=== PATIENT | female | born 1960 | race Caucasian/White ===

== ENCOUNTER → 2016-05-25 | Outpatient (CLI) | payer BC ==
--- NOTE | 2016-05-25 09:09 | MR ---
EXAMINATION TYPE: MR knee RT wo con DATE OF EXAM: 05/25/2016 8:24 AM COMPARISON: NONE HISTORY: Rt Knee internal derangement per order. Pain, swelling, and locking sensation for x 6-7 kait hs per patient. History of prior surgery. TECHNIQUE: Multiplanar, multisequence images of the knee is performed without IV contrast. FINDINGS: MEDIAL MENISCUS: Anterior horn is intact without tear. Oblique increased signal posterior horn of med ial meniscus is present on sagittal image 8, does not extend to articular surface at this level. Some additional vague linear signal is seen abutting articular surface on sagittal image 10. LATERAL MENISCUS: Anterior and posterior horns are intact without tear. CRUCIATE LIGAMENTS: The anterior and posterior cruciate ligaments are intact. Focal increased signal is seen in posterior cruciate ligament on sagittal image 16 consistent with partial tear/tendinosis. COLLATERAL LIGAMENTS: The medial collateral ligament and lateral collateral ligament complex are inta ct and unremarkable. EXTENSOR MECHANISM: Visualized quadriceps and patellar tendons are intact. EFFUSION: There is small suprapatellar joint effusion. POPLITEAL CYST: No popliteal/llanos cyst. TRICOMPARTMENT SPACES: There is moderate to severe joint space loss patellofemoral compartment with m ild to moderate spurring. Mild joint space loss medial tibiofemoral compartment is present. Mild spur ring lateral and medial tibiofemoral compartments is seen. CARTILAGE: There is prominent chondromalacia patella with full-thickness cartilaginous loss for poste rior patellar pole identified seen best along the medial inferior aspect on axial image 12. BONE MARROW SIGNAL: There is artifact from metallic hardware at level of the tibial metadiaphysis at level of tibial tuberosity. There is some T2 hyperintense change involving the superior medial patell ar pole level of chondromalacia patella. OTHER: No additional significant abnormality is appreciated. IMPRESSION: 1. Degenerative changes right knee most pronounced patellofemoral compartment where moderate to advan gill findings and full-thickness chondromalacia patella is present. 2. Full-thickness tear posterior horn of medial meniscus felt present. 3. Evidence of prior surgery proximal tibia.
== END | disposition home or self-care (01) ==
LOC: RADMRIMAIN 07:37
PROVIDERS: ATTEND Family Medicine
DX: M23.221 Derangement of posterior horn of medial meniscus due to old tear or injury, right knee (principal); M17.11 Unilateral primary osteoarthritis, right knee; Z98.890 Other specified postprocedural states

== ENCOUNTER → 2017-10-23 | Outpatient (CLI) | payer BC ==
--- NOTE | 2017-10-23 15:16 | CT ---
EXAMINATION TYPE: CT brain wo con DATE OF EXAM: 10/23/2017 HISTORY: Short term memory loss x1 year CT DLP: 1055 mGycm. Automated Exposure Control for Dose Reduction was Utilized. TECHNIQUE: CT scan of the head is performed without contrast. COMPARISON: None. FINDINGS: There is no acute intracranial hemorrhage or midline shift identified. Ventricles and sul ci are felt within normal limits in size. Velasco-white matter differentiation is maintained. Slightly l ow-lying cerebellar tonsils are seen but not greater than 5 mm inferior descent into foramen magnum i s felt present. Globes are intact bilaterally. There is moderate mucosal thickening left maxillary sinus. There is patchy opacity in the posterior aspect right maxillary sinus, correlate to exclude ac hughes sinusitis. IMPRESSION: No suspicious acute intracranial findings identified.
== END | disposition home or self-care (01) ==
LOC: RADCTMAIN 14:52
PROVIDERS: ATTEND Family Medicine
DX: R41.3 Other amnesia (principal)
CPT/HCPCS: 70450

== ENCOUNTER → 2018-11-22 | Outpatient (CLI) | payer BC ==
[2018-11-22 18:18] LABS: Progesterone <0.2 ng/mL
== END | disposition home or self-care (01) ==
LOC: LABWHC1 14:22
PROVIDERS: ATTEND Obstetrics & Gynecology
DX: R53.83 Other fatigue (principal); R61 Generalized hyperhidrosis; N95.1 Menopausal and female climacteric states
CPT/HCPCS: 36415; 82670; 83001; 84144; 84403

== ENCOUNTER → 2018-12-02 | Outpatient (CLI) | payer BC ==
--- NOTE | 2018-12-02 13:35 | XR ---
Lumbar spine HISTORY: Low back pain 3 views of the lumbar spine There is a levoscoliosis centered at L3. Multilevel spondylosis is present. Lumbar vertebral bodies s how preserved height. Loss of disc height present at the intervertebral levels. Vacuum phenomenon emma pected at L4-5 and L5-S1. Sclerosis present in the posterior elements. IMPRESSION: Degenerative disc disease and facet arthropathy, possible spinal curvature.
== END | disposition home or self-care (01) ==
LOC: RADXRMAIN 10:23
PROVIDERS: ATTEND Family Medicine
DX: M51.36 Other intervertebral disc degeneration, lumbar region (principal); M46.96 Unspecified inflammatory spondylopathy, lumbar region
CPT/HCPCS: 72100

== ENCOUNTER → 2018-12-10 | Outpatient (CLI) | payer BC ==
--- NOTE | 2018-12-10 14:06 | NM ---
EXAMINATION TYPE: NM bone scan whole body DATE OF EXAM: 12/10/2018 COMPARISON: NONE HISTORY: Chronic pain Delayed whole-body scanning was performed following the injection of 24.8 mCi Tc 99m MDP. Images acq uired 3 hours post injection. FINDINGS: Focal radiotracer accumulation is seen within the medial tibial plateau on the right and overlying th e right patella. Degenerative symmetric uptake is seen of the glenohumeral joints, chromic clavicular joints, sternoclavicular joints, and sacroiliac joints. Focal uptake is also seen of the left hemive rtebrae at L5. There is a very mild S-shaped scoliotic curvature of the thoracolumbar spine. IMPRESSION: 1. Small foci of radiotracer accumulation in the right knee. Correlate with right knee radiographs. 2. Focal uptake within the L5 vertebral body and its left lateral aspect. This likely relates to dege nerative disc disease when correlated with the x-rays dated 12/02/2018. 3. Very mild S-shaped scoliotic curvature of the thoracolumbar spine.
== END | disposition home or self-care (01) ==
LOC: RADNMMAIN 09:41
PROVIDERS: ATTEND Family Medicine
DX: M41.9 Scoliosis, unspecified (principal); Z88.2 Allergy status to sulfonamides
CPT/HCPCS: 78306; A9503

== ENCOUNTER → 2018-12-21 | Outpatient (CLI) | payer BC ==
--- NOTE | 2018-12-21 08:40 | MR ---
MR lumbar spine wo con Low back pain, scoliosis Multiplanar, multiecho imaging of the lumbar spine was obtained without contrast on a 3 Joellen magnet. REFERENCE:None. FINDINGS: Paraspinal soft tissues are unremarkable. There is a gentle levoscoliosis. Vertebral body height and alignment are maintained. Cord signal is maintained the conus ends normally at the level of the mid body of L1. At T12-L1, no definite abnormality is seen. At L1-2, there is disc space loss and disc desiccation. Intervertebral foramina are well maintained. There is a broad-based left paracentral disc displacement effacing the thecal sac without definite ne ural compression. There are mild hypertrophic changes in the facets. At L2-3, there is disc space loss and disc desiccation. There is bilateral intervertebral foraminal n arrowing. There is a broad-based disc displacement. This hypertrophic changes and capsulitis within t he facets. At L3-4, there is disc desiccation and disc space loss. There is a small annular rent. There is a lef t paracentral disc protrusion causing left-sided intervertebral foraminal narrowing. This is impingin g upon the exiting L3 nerve root. There are hypertrophic changes in capsulitis within the facets. At L4-5, there is disc space loss and disc desiccation. There is a broad-based disc protrusion slight ly eccentric towards the left. There is bilateral intervertebral foraminal narrowing, worse on the le ft than the right. This is on the exiting L4 nerve root and impingement upon the traversing L5 nerve on the left. There are fairly marked hypertrophic changes in the facets. At L5-S1, there is disc space loss and disc desiccation present. There is a small right paracentral d isc displacement. The intervertebral foramina appear reasonably well-maintained. There are hypertroph ic changes within the facets. IMPRESSION: 1. DIFFUSE DEGENERATIVE DISC DISEASE AND FACET ARTHROPATHY. 2. LEFT PARACENTRAL DISC PROTRUSIONS, L3-4 AND L4-5. 3. MULTILEVEL INTERVERTEBRAL FORAMINAL NARROWING.
== END | disposition home or self-care (01) ==
LOC: RADMRIMAIN 07:34
PROVIDERS: ATTEND Family Medicine
DX: M48.061 Spinal stenosis, lumbar region without neurogenic claudication (principal); M51.36 Other intervertebral disc degeneration, lumbar region; M51.26 Other intervertebral disc displacement, lumbar region; M46.96 Unspecified inflammatory spondylopathy, lumbar region
CPT/HCPCS: 72148

== ENCOUNTER → 2018-12-23 | Outpatient (CLI) | payer BC ==
[2018-12-23 18:50] LABS: Progesterone 5.5 ng/mL
== END | disposition home or self-care (01) ==
LOC: LABWHC1 11:53
PROVIDERS: ATTEND Obstetrics & Gynecology
DX: E34.50 Androgen insensitivity syndrome, unspecified (principal); R53.83 Other fatigue; N95.1 Menopausal and female climacteric states; M25.50 Pain in unspecified joint
CPT/HCPCS: 36415; 82670; 83001; 84144; 84403

== ENCOUNTER → 2018-12-23 | Outpatient (CLI) | payer BC ==
--- NOTE | 2018-12-24 13:35 | MM ---
Reason for exam: screening (asymptomatic). Last mammogram was performed 3 years and 7 months ago. History: Patient is postmenopausal. Family history of breast cancer in paternal grandmother at age 70. Benign US biopsy breast VAD RT of the right breast, December 01, 2014. Physical Findings: A clinical breast exam by your physician is recommended on an annual basis and results should be correlated with mammographic findings. MG Screening Mammo w CAD Bilateral CC and MLO view(s) were taken. Prior study comparison: May 31, 2015, right breast MG 3d diag mammo w/cad RT. May 31, 2015, right breast US breast RT. December 01, 2014, right breast MG diagnostic mammo RT wo CAD. There are scattered fibroglandular densities. Previous mammotome biopsy in the right breast. 1 o'clock focal asymmetry right breast appears more defined. ASSESSMENT: Incomplete: need additional imaging evaluation, BI-RAD 0 RECOMMENDATION: Special view mammogram of the right breast. (3D) If lesion persists on supplemental views, image directed ultrasound is recommended. [facility] will attempt to contact patient to return for supplemental views and ultrasound if indicated.
== END | disposition home or self-care (01) ==
LOC: RADMAMWWP 11:37
PROVIDERS: ATTEND Family Medicine
DX: Z12.31 Encounter for screening mammogram for malignant neoplasm of breast (principal); Z80.3 Family history of malignant neoplasm of breast
CPT/HCPCS: 77067

== ENCOUNTER → 2019-01-02 | Outpatient (CLI) | payer BC ==
--- NOTE | 2019-01-02 13:34 | MM ---
Reason for exam: additional evaluation requested from abnormal screening. Last mammogram was performed less than 1 month ago. History: Patient is postmenopausal. Family history of breast cancer in paternal grandmother at age 70. Benign US biopsy breast VAD RT of the right breast, December 01, 2014. Physical Findings: Nurse did not find any significant physical abnormalities on exam. MG Work Up Mamm w CAD RT Spot compression CC, spot compression MLO, and LM view(s) were taken of the right breast. Prior study comparison: December 23, 2018, bilateral MG screening mammo w CAD. May 31, 2015, right breast MG 3d diag mammo w/cad RT. There are scattered fibroglandular densities. There is a persistent 5mm mass, 5cm from nipple on the right appearing in the upper outer quadrant 12 o'clock on today's exams but medial on the recent screening, ultrasound will be performed. Right biopsy marker noted. These results were verbally communicated with the patient and result sheet given to the patient on 01/02/19. ASSESSMENT: Incomplete: need additional imaging evaluation, BI-RAD 0 RECOMMENDATION: Ultrasound of the right breast. (upper outer quadrant, if no correlate then upper inner quadrant)
--- NOTE | 2019-01-02 13:35 | USB ---
Reason for exam: additional evaluation requested from abnormal screening. History: Patient is postmenopausal. Family history of breast cancer in paternal grandmother at age 70. Benign US biopsy breast VAD RT of the right breast, December 01, 2014. US Breast Workup Limited RT Right limited breast ultrasound including focal area of concern, retroareolar and axilla demonstrates a 0.4 x 0.3 x 0.6cm mixed lesion at 1 o'clock, corresponds to mammographic finding retrospectively unchanged from 10/16/14. These results were verbally communicated with the patient and result sheet given to the patient on 01/02/19. ASSESSMENT: Benign, BI-RAD 2 RECOMMENDATION: Return to routine screening mammogram schedule for both breasts.
== END | disposition home or self-care (01) ==
LOC: RADMAMWWP 11:14
PROVIDERS: ATTEND Family Medicine
DX: R92.8 Other abnormal and inconclusive findings on diagnostic imaging of breast (principal)
CPT/HCPCS: 77065

== ENCOUNTER 2019-01-07 12:02 | Emergency (ER) | payer BC ==
[2019-01-07 12:22] VITALS: BP 132/86; PULSE 93; RESP 18; TEMP 98.8
[2019-01-07] MEDS ORDERED: SODIUM CHLORIDE 0.9% IRRIG 1,000 ML BTL IRRIGATION ONE (12:34)
[2019-01-07] MEDS ORDERED: DIPH,PERTUS(ACELL)TETVAC-LF 0.5 ML VIAL IM ONE (12:34)
[2019-01-07] MEDS ORDERED: LIDOCAINE 1% INJ 10MG/ML (20 ML MDV) SQ ONE (12:35)
--- NOTE | 2019-01-07 13:00 | XR ---
EXAMINATION TYPE: XR finger RT DATE OF EXAM: 01/07/2019 COMPARISON: NONE HISTORY: Right finger laceration and injury with pain. TECHNIQUE: 3 views of the right fourth digit were obtained FINDINGS: There is an osseous laceration in addition to the soft tissue laceration there is obliquely oriented within the distal tuft of the fourth digit. This is not comminuted and nondisplaced. No rad iopaque foreign body. Overlying soft tissue swelling is seen. No intra-articular extension. No additi onal fracture is seen in the visualized right hand. IMPRESSION: Obliquely oriented noncomminuted, nondisplaced osseous laceration of the distal tuft of t he right fourth digit in addition to soft tissue laceration. No radiopaque foreign body.
[2019-01-07] MEDS ORDERED: cefTRIAXone 1,000 MG VIAL (IM USE) IM STA (13:12)
--- NOTE | 2019-01-07 13:37 | ED ---
Wound/Laceration HPI - General Chief Complaint: Wound/Laceration Stated Complaint: finger lac Time Seen by Provider: 01/07/19 12:23 Source: patient Mode of arrival: ambulatory Limitations: no limitations - History of Present Illness Initial Comments: 58-year-old female presenting today for chief complaint of finger laceration. Patient states that he p.m. she was working in her garden when she slipped using the lettuce trimmer. He states she cut the finger pad of her right ring finger with another small laceration to the middle finger finger pad. She states that she cleansed the area extensively and applied bandages were prior to going to bed. She denies any limitations range motion numbness or tingling. She states the fingers throbbing this morning. Patient felt she might need sutures and presents immersed in for evaluation. Patient is unsure of her tetanus. Remaining review of systems negative. Patient states bleeding is controlled up on arrival. Denies diabetes. - Related Data Home Medications Medication Instructions Recorded Confirmed Citalopram Hydrobromide [CeleXA] 40 mg PO DAILY 02/25/17 02/25/17 Tolterodine Tartrate [Detrol LA] 4 mg PO DAILY 02/25/17 02/25/17 lamoTRIgine [LaMICtal] 200 mg PO DAILY 02/25/17 02/25/17 Previous Rx's Medication Instructions Recorded Ciprofloxacin HCl [Cipro] 500 mg PO Q12HR 10 Days #14 tab 02/25/17 HYDROcodone/APAP 5-325MG [[place] 1 tab PO Q6HR PRN #15 tab 02/25/17 5-325] Ketorolac [Toradol] 10 mg PO Q6HR #15 tab 02/25/17 Ondansetron Odt [Zofran Odt] 4 mg PO Q8HR PRN #12 tab 02/25/17 Tamsulosin [Flomax] 0.4 mg PO DAILY #10 cap 02/25/17 Cephalexin [Keflex] 500 mg PO Q6HR 7 Days #28 cap 01/07/19 Allergies Allergy/AdvReac Type Severity Reaction Status Date / Time Penicillins Allergy Unknown Verified 01/07/19 12:23 Sulfa (Sulfonamide Allergy generalized Verified 01/07/19 12:23 Antibiotics) swelling, hives Review of Systems ROS Statement: Those systems with pertinent positive or pertinent negative responses have been documented in the HPI. ROS Other: All systems not noted in ROS Statement are negative. Past Medical History Past Medical History: Fibromyalgia Additional Past Medical History / Comment(s): hx fractured wrist, weak bladder, steroids w/in 3 mos, pm > 2 YRS History of Any Multi-Drug Resistant Organisms: None Reported Past Surgical History: Hysterectomy, Orthopedic Surgery Additional Past Surgical History / Comment(s): finger surg,wrist surg,knee surg Past Anesthesia/Blood Transfusion Reactions: Motion Sickness Past Psychological History: Depression Smoking Status: Current every day smoker Past Alcohol Use History: Occasional Past Drug Use History: Marijuana - Past Family History Mother Family Medical History: No Reported History Father Additional Family Medical History / Comment(s): cerebral hemorrhage General Exam - General Exam Comments Initial Comments: General: The patient is awake and alert, in no distress, and does not appear acutely ill. Eye: Pupils are equal, round and reactive to light, extra-ocular movements are intact. No nystagmus. There is normal conjunctiva bilaterally. No signs of icterus. Cardiovascular: There is a regular rate and rhythm. No murmur, rub or gallop is appreciated. Respiratory: Lungs are clear to auscultation, respirations are non-labored, breath sounds are equal. No wheezes, stridor, rales, or rhonchi. Musculoskeletal: Upon inspection of all 5 digits of the right hand there is 2 lacerations one on the finger pad of the right ring finger which is larger measuring roughly 1.5 cm. With additional superficial laceration of the middle finger pad measuring 1 cm Normal ROM, no tenderness at the MCP PIP and DIP joints. Strength 5/5was tested isolating MCP PIP and DIP joints no noted weakness of the affected digits . Sensation intact. radial pulses equal bilaterally 2+. capillary refill < 2 seconds. Neurological: A&O x 3. CN II-XII intact, There are no obvious motor or sensory deficits. Coordination appears grossly intact. Speech is normal. Skin: Skin is warm and dry and no rashes or lesions are noted. Psychiatric: Cooperative, appropriate mood & affect, normal judgment. Limitations: no limitations Course Vital Signs 01/07/19 12:21 Temperature 98.8 F Pulse Rate 93 Respiratory 18 Rate Blood Pressure 132/86 O2 Sat by Pulse 96 Oximetry Procedures - Laceration Laceration #1 Consent Obtained: verbal consent Indication: laceration Site: hand (right ring finger finger pad) Size (cm): 2 (1.5) Description: irregular Depth: simple, single layer Anesthetic Used: lidocaine 1% Anesthesia Technique: nerve block Amount (mls): 2 Pre-repair: wound explored, irrigated extensively, deep structures intact Type of Sutures: nylon Size of Sutures: 5-0 Number of Sutures: 4 Technique: simple, interrupted Patient Tolerated Procedure: well, no complications Additional Comments: wound edges appeared vitalized. No active bleeding. Area was extensively irrigated and cleansed with iodine prior to closure. Patient tolerated procedure well. Laceration #2 Consent Obtained: verbal consent Indication: laceration Site: hand (right middle finger finger pad) Size (cm): 1 Description: linear Depth: simple, single layer Anesthetic Used: lidocaine 1% Anesthesia Technique: nerve block Amount (mls): 1 Pre-repair: wound explored, irrigated extensively, deep structures intact Type of Sutures: nylon Size of Sutures: 5-0 Number of Sutures: 2 Technique: simple, interrupted Patient Tolerated Procedure: well, no complications Medical Decision Making - Medical Decision Making Well-appearing 58-year-old female presenting for injury to the middle and ring finger of the right hand with lettuce trimmer. Patient has no limitations in ROM or strength of affected digits. No signs concerning for tendon injury. Imaging studies were obtained prior to closure revealing non-comminuted tuft fracture of the right fourth digit. I suspect this to be an open fracture. Patient was given antibiotics in the emergency department. Tetanus updated. Area was extensively irrigated prior to closure patient was placed in a splint, and will be given orthopedic follow-up. Return parameters as well as the risk of infection were discussed with patient. Patient verbalizes understanding, as well as the importance of follow-up. Patient was discharged appearing well after discussing the case with Dr. Michelle. Disposition Clinical Impression: Finger laceration, Closed fracture of tuft of distal phalanx of finger Disposition: HOME SELF-CARE Condition: Good Instructions (If sedation given, give patient instructions): Finger Fracture (ED), Finger Laceration (ED) Prescriptions: Cephalexin [Keflex] 500 mg PO Q6HR 7 Days #28 cap Is patient prescribed a controlled substance at d/c from ED?: No Referrals: Ronald Fajardo DO [Primary Care Provider] - 1-2 days Jonathan Curry DO [Doctor of Osteopathic Medicine] - 1-2 days Time of Disposition: 14:05
== END 2019-01-07 14:15 | disposition home or self-care (01) ==
LOC: EC 12:02
DX: S62.634A Displaced fracture of distal phalanx of right ring finger, initial encounter for closed fracture (principal); S61.212A Laceration without foreign body of right middle finger without damage to nail, initial encounter; S61.214A Laceration without foreign body of right ring finger without damage to nail, initial encounter; F32.9 Major depressive disorder, single episode, unspecified; F17.200 Nicotine dependence, unspecified, uncomplicated; M79.7 Fibromyalgia; Z98.890 Other specified postprocedural states; Z79.899 Other long term (current) drug therapy; Z88.2 Allergy status to sulfonamides; Z88.0 Allergy status to penicillin; Z23 Encounter for immunization; W29.3XXA Contact with powered garden and outdoor hand tools and machinery, initial encounter; Y92.89 Other specified places as the place of occurrence of the external cause; Y93.H2 Activity, gardening and landscaping
CPT/HCPCS: 73140; 90715; 99283; 12001; 96372; 90471; J2001; J0696

== ENCOUNTER 2020-01-19 15:15 | Emergency (ER) | payer BC, OTHER ==
[2020-01-19] MEDS ORDERED: SODIUM CHLORIDE 0.9% 1,000 ML IV STA ×2 (16:05)
[2020-01-19] MEDS ORDERED: ONDANSETRON 4 MG/2 ML VIAL IVP STA (16:06)
[2020-01-19] MEDS ORDERED: MORPHINE SULFATE 4 MG/ML SYRINGE IVP STA (16:06)
[2020-01-19 16:29] VITALS: TEMP 98.3
[2020-01-19 16:38] LABS: Basophils # (A) 0.1 k/uL (0-0.2); Basophils % (A) 1 %; Eosinophils # (A) 0.2 k/uL (0-0.7); Eosinophils % (A) 2 %; HCT 45.7 % (34.0-46.0); HGB 14.8 gm/dL (11.4-16.0); Lymphocytes # (A) 2.3 k/uL (1.0-4.8); Lymphocytes % (A) 20 %; MCH 30.7 pg (25.0-35.0); MCHC 32.4 g/dL (31.0-37.0); MCV 94.8 fL (80.0-100.0); Mean Platelet Volume 7.8; Monocytes # (A) 0.4 k/uL (0-1.0); Monocytes % (A) 4 %; Neutrophils # (A) 8.4 k/uL (1.3-7.7); Neutrophils % (A) 73 %; Platelet Count 219 k/uL (150-450); RBC 4.82 m/uL (3.80-5.40); RDW 12.6 % (11.5-15.5); WBC 11.5 k/uL (3.8-10.6)
[2020-01-19 16:48] LABS: ALT 13 U/L (4-34); AST 21 U/L (14-36); African American GFR (CKD) >90 (>60 ml/min/1.73 sqM); Albumin 4.1 g/dL (3.5-5.0); Alkaline Phosphatase 69 U/L (38-126); Amylase 48 U/L (30-110); Anion Gap 4 mmol/L; Blood Urea Nitrogen 16 mg/dL (7-17); Calcium 10.6 mg/dL (8.4-10.2); Carbon Dioxide 27 mmol/L (22-30); Chloride 106 mmol/L (98-107); Glucose 70 mg/dL (74-99); Magnesium 1.8 mg/dL (1.6-2.3); Non-African American GFR(CKD) >90 (>60 ml/min/1.73 sqM); Potassium 4.2 mmol/L (3.5-5.1); Sodium 137 mmol/L (137-145); Total Bilirubin 0.3 mg/dL (0.2-1.3); Total Protein 6.3 g/dL (6.3-8.2)
--- NOTE | 2020-01-19 16:52 | XR ---
EXAMINATION TYPE: XR chest 2V DATE OF EXAM: 01/19/2020 COMPARISON: NONE HISTORY: Chest pain TECHNIQUE: FINDINGS: There is no heart failure nor confluent pneumonic infiltrate. Costophrenic angles are clear . There are no hilar masses. There is small linear density at the left costophrenic angle. Pulmonary vascularity is normal. Heart size is normal. There are chest leads. Bony thorax is intact. IMPRESSION: Minimal pleural reaction lateral left lung base. Otherwise negative exam.
[2020-01-19 17:04] LABS: INR 0.9 (<1.2); Partial Thromboplastin Time 23.4 sec (22.0-30.0); Prothrombin Time 9.7 sec (9.0-12.0)
[2020-01-19 17:09] VITALS: RESP 16
[2020-01-19 17:12] LABS: D-Dimer 0.63 mg/L FEU (<0.60)
--- NOTE | 2020-01-19 17:16 | ED ---
General Adult HPI - General Chief complaint: Back Pain/Injury Stated complaint: back pain, paula Time Seen by Provider: 01/19/20 15:51 Source: patient, RN notes reviewed, old records reviewed Mode of arrival: ambulatory Limitations: no limitations - History of Present Illness Initial comments: Ronal is a 5-year-old female presents emergency room today for evaluation for left-sided back and chest discomfort into her abdomen. She reports that she feels that she's got gas. She states it's worse with movement. She reports she woke up with symptoms. said she was worried this could be heart attack. Pt states she has been having symptoms worse with movement for the past 12 hours. - Related Data Home Medications Medication Instructions Recorded Confirmed Citalopram Hydrobromide [CeleXA] 40 mg PO DAILY@1200 02/25/17 01/19/20 Tolterodine Tartrate [Detrol LA] 4 mg PO DAILY@1200 02/25/17 01/19/20 Ibuprofen [Motrin] 800 mg PO TID PRN 01/19/20 01/19/20 lamoTRIgine [LaMICtal Xr] 200 mg PO DAILY@1200 01/19/20 01/19/20 Previous Rx's Medication Instructions Recorded Acetaminophen-Codeine 300-30mg 1 tab PO Q6H PRN 3 Days #12 tablet 01/19/20 [Tylenol w/codeine #3] methocarbamoL [Robaxin] 1,500 mg PO TID #12 tab 01/19/20 methylPREDNISolone Dose Pack 4 mg PO DIRECTED #21 package 01/19/20 [Medrol Dose Pack] Allergies Allergy/AdvReac Type Severity Reaction Status Date / Time naproxen [From Aleve] Allergy Swelling Verified 01/19/20 17:08 Penicillins Allergy Unknown Verified 01/19/20 17:08 Sulfa (Sulfonamide Allergy generalized Verified 01/19/20 17:08 Antibiotics) swelling, hives Review of Systems ROS Statement: Those systems with pertinent positive or pertinent negative responses have been documented in the HPI. ROS Other: All systems not noted in ROS Statement are negative. Past Medical History Past Medical History: Fibromyalgia Additional Past Medical History / Comment(s): hx fractured wrist, weak bladder, steroids w/in 3 mos, pm > 2 YRS History of Any Multi-Drug Resistant Organisms: None Reported Past Surgical History: Hysterectomy, Orthopedic Surgery Additional Past Surgical History / Comment(s): finger surg,wrist surg,knee surg Past Anesthesia/Blood Transfusion Reactions: Motion Sickness Past Psychological History: Depression Past Alcohol Use History: Occasional Past Drug Use History: Marijuana - Past Family History Mother Family Medical History: No Reported History Father Additional Family Medical History / Comment(s): cerebral hemorrhage General Exam - General Exam Comments Initial Comments: 59 year old female, no distress. Limitations: no limitations General appearance: alert, in no apparent distress Head exam: Present: atraumatic, normocephalic, normal inspection Eye exam: Present: normal appearance, PERRL, EOMI. Absent: scleral icterus, conjunctival injection, periorbital swelling Neck exam: Present: normal inspection. Absent: tenderness, meningismus, lymphadenopathy Respiratory exam: Present: normal lung sounds bilaterally, other. Absent: respiratory distress, wheezes, rales, rhonchi, stridor Cardiovascular Exam: Present: regular rate, normal rhythm, normal heart sounds. Absent: systolic murmur, diastolic murmur, rubs, gallop, clicks GI/Abdominal exam: Present: soft, normal bowel sounds, other (Pain with left lower rib and upper abdominal palpation). Absent: distended, tenderness, guardi ng, rebound, rigid Extremities exam: Present: normal inspection, full ROM, normal capillary refill. Absent: tenderness, pedal edema, joint swelling, calf tenderness Back exam: Present: normal inspection Neurological exam: Present: alert, oriented X3, CN II-XII intact Course Vital Signs 01/19/20 01/19/20 01/19/20 15:37 16:28 17:09 Temperature 98.4 F 98.3 F Pulse Rate 94 75 80 Respiratory 18 18 16 Rate Blood Pressure 136/85 138/72 143/85 O2 Sat by Pulse 98 99 99 Oximetry 01/19/20 18:57 Temperature Pulse Rate 75 Respiratory 16 Rate Blood Pressure 116/77 O2 Sat by Pulse 97 Oximetry Medical Decision Making - Medical Decision Making 59 year old female presents today for left abdominal, back pain and chest pain today. IT is worse with movement. Pt EKG was normal, labs besides d-dimer were normal. Pt had cT which is negatie for PE. Pt seems to be muscluskeletal in nature adn advised close PCP folllow up and return parameters discussed. - Lab Data Result diagrams: 01/19/20 16:26 01/19/20 16:26 Lab Results 01/19/20 01/19/20 01/19/20 Range/Units 16:26 16:26 16:26 WBC 11.5 H (3.8-10.6) k/uL RBC 4.82 (3.80-5.40) m/uL Hgb 14.8 (11.4-16.0) gm/dL Hct 45.7 (34.0-46.0) % MCV 94.8 (80.0-100.0) fL MCH 30.7 (25.0-35.0) pg MCHC 32.4 (31.0-37.0) g/dL RDW 12.6 (11.5-15.5) % Plt Count 219 (150-450) k/uL Neutrophils % 73 % Lymphocytes % 20 % Monocytes % 4 % Eosinophils % 2 % Basophils % 1 % Neutrophils # 8.4 H (1.3-7.7) k/uL Lymphocytes # 2.3 (1.0-4.8) k/uL Monocytes # 0.4 (0-1.0) k/uL Eosinophils # 0.2 (0-0.7) k/uL Basophils # 0.1 (0-0.2) k/uL PT 9.7 (9.0-12.0) sec INR 0.9 (<1.2) APTT 23.4 (22.0-30.0) sec D-Dimer 0.63 H (<0.60) mg/L FEU Sodium 137 (137-145) mmol/L Potassium 4.2 (3.5-5.1) mmol/L Chloride 106 (98-107) mmol/L Carbon Dioxide 27 (22-30) mmol/L Anion Gap 4 mmol/L BUN 16 (7-17) mg/dL Creatinine 0.58 (0.52-1.04) mg/dL Est GFR (CKD-EPI)AfAm >90 (>60 ml/min/1.73 sqM) Est GFR (CKD-EPI)NonAf >90 (>60 ml/min/1.73 sqM) Glucose 70 L (74-99) mg/dL Plasma Lactic Acid Maged (0.7-2.0) mmol/L Calcium 10.6 H (8.4-10.2) mg/dL Magnesium 1.8 (1.6-2.3) mg/dL Total Bilirubin 0.3 (0.2-1.3) mg/dL AST 21 (14-36) U/L ALT 13 (4-34) U/L Alkaline Phosphatase 69 (38-126) U/L Troponin I (0.000-0.034) ng/mL Total Protein 6.3 (6.3-8.2) g/dL Albumin 4.1 (3.5-5.0) g/dL Amylase 48 (30-110) U/L Lipase 74 (23-300) U/L Urine Color Urine Appearance (Clear) Urine pH (5.0-8.0) Ur Specific [place] (1.001-1.035) Urine Protein (Negative) Urine Glucose (UA) (Negative) Urine Ketones (Negative) Urine Blood (Negative) Urine Nitrite (Negative) Urine Bilirubin (Negative) Urine Urobilinogen (<2.0) mg/dL Ur Leukocyte Esterase (Negative) Urine RBC (0-5) /hpf Urine WBC (0-5) /hpf Ur Squamous Epith Cells (0-4) /hpf Calcium Oxalate Crystal (None) /hpf Urine Mucus (None) /hpf 01/19/20 01/19/20 01/19/20 Range/Units 16:26 16:26 17:04 WBC (3.8-10.6) k/uL RBC (3.80-5.40) m/uL Hgb (11.4-16.0) gm/dL Hct (34.0-46.0) % MCV (80.0-100.0) fL MCH (25.0-35.0) pg MCHC (31.0-37.0) g/dL RDW (11.5-15.5) % Plt Count (150-450) k/uL Neutrophils % % Lymphocytes % % Monocytes % % Eosinophils % % Basophils % % Neutrophils # (1.3-7.7) k/uL Lymphocytes # (1.0-4.8) k/uL Monocytes # (0-1.0) k/uL Eosinophils # (0-0.7) k/uL Basophils # (0-0.2) k/uL PT (9.0-12.0) sec INR (<1.2) APTT (22.0-30.0) sec D-Dimer (<0.60) mg/L FEU Sodium (137-145) mmol/L Potassium (3.5-5.1) mmol/L Chloride (98-107) mmol/L Carbon Dioxide (22-30) mmol/L Anion Gap mmol/L BUN (7-17) mg/dL Creatinine (0.52-1.04) mg/dL Est GFR (CKD-EPI)AfAm (>60 ml/min/1.73 sqM) Est GFR (CKD-EPI)NonAf (>60 ml/min/1.73 sqM) Glucose (74-99) mg/dL Plasma Lactic Acid Maged 1.0 (0.7-2.0) mmol/L Calcium (8.4-10.2) mg/dL Magnesium (1.6-2.3) mg/dL Total Bilirubin (0.2-1.3) mg/dL AST (14-36) U/L ALT (4-34) U/L Alkaline Phosphatase (38-126) U/L Troponin I <0.012 (0.000-0.034) ng/mL Total Protein (6.3-8.2) g/dL Albumin (3.5-5.0) g/dL Amylase (30-110) U/L Lipase (23-300) U/L Urine Color Yellow Urine Appearance Clear (Clear) Urine pH 6.0 (5.0-8.0) Ur Specific [place] 1.021 (1.001-1.035) Urine Protein Trace H (Negative) Urine Glucose (UA) Negative (Negative) Urine Ketones Negative (Negative) Urine Blood Trace H (Negative) Urine Nitrite Negative (Negative) Urine Bilirubin Negative (Negative) Urine Urobilinogen <2.0 (<2.0) mg/dL Ur Leukocyte Esterase Negative (Negative) Urine RBC 2 (0-5) /hpf Urine WBC 1 (0-5) /hpf Ur Squamous Epith Cells 2 (0-4) /hpf Calcium Oxalate Crystal Rare H (None) /hpf Urine Mucus Occasional H (None) /hpf 01/19/20 17:32 EKG shows normal sinus rhythm normal EKG. Ventricular rate of 78 bpm. OR interval is 156 most seconds. Estrogen is 84 ms. QT QTc is 378/4:30 milliseconds. - Radiology Data Radiology results: report reviewed Minimal pleural reaction at the lateral left lung base. Otherwise negative exam. No evidence of pulmonary and both him. Mild subsegmental atelectasis and posterior lung bases. Mild nonspecific bilateral bronchial adenopathy. Disposition Clinical Impression: Pleurisy, Back spasm Disposition: HOME SELF-CARE Condition: Good Instructions (If sedation given, give patient instructions): Pleurisy (ED) Additional Instructions: Please use medication as discussed. Please follow up with family doctor if symptoms have not improved over the next two days. Please return to the emergency room if your symptoms increase or worsen or for any other concerns. Prescriptions: methylPREDNISolone Dose Pack [Medrol Dose Pack] 4 mg PO DIRECTED #21 package methocarbamoL [Robaxin] 1,500 mg PO TID #12 tab Acetaminophen-Codeine 300-30mg [Tylenol w/codeine #3] 1 tab PO Q6H PRN 3 Days #12 tablet PRN Reason: Pain Is patient prescribed a controlled substance at d/c from ED?: No Referrals: Ronald Fajardo DO [Primary Care Provider] - 1-2 days Time of Disposition: 19:19
[2020-01-19 17:22] LABS: Appearance,Urine Clear (Clear); Bilirubin,Urine Negative (Negative); Blood,Urine Trace (Negative); Calcium Oxalate Crystals,Urine Rare /hpf; Color,Urine Yellow; Glucose,Urine (UA) Negative (Negative); Ketones,Urine Negative (Negative); Leukocyte Esterase,Urine Negative (Negative); Mucus,Urine Occasional /hpf; Nitrite,Urine Negative (Negative); Protein,Urine Trace (Negative); RBC,Urine 2 /hpf (0-5); Specific Gravity,Urine 1.021 (1.001-1.035); Squamous Epithelial Cell,Urine 2 /hpf (0-4); Urobilinogen,Urine <2.0 mg/dL (<2.0); WBC,Urine 1 /hpf (0-5)
--- NOTE | 2020-01-19 18:42 | CT ---
EXAMINATION TYPE: CT chest angio for PE DATE OF EXAM: 01/19/2020 COMPARISON: None HISTORY: Back pain with difficulty breathing. CT DLP: 277 mGycm Automated exposure control for dose reduction was used. CONTRAST: Performed with IV Contrast, patient injected with 100 mL of Isovue 370. There are 3-D post processed images. There is no mediastinal adenopathy. Thoracic aorta shows no aneurysm or dissection. There are no lyubov r masses. There are a few bilateral bronchial lymph nodes that measure up to 1 cm. There is normal contrast opacification of the pulmonary arteries. There are no filling defects. There is patchy atelectasis at the posterior lung bases. There is no evidence of a pulmonary mass. Th e bony thorax is intact. I see no bony destructive process. IMPRESSION: No evidence of pulmonary embolism. Mild subsegmental atelectasis at the posterior lung bases. Mild nonspecific bilateral bronchial adenopathy
[2020-01-19 18:57] VITALS: BP 116/77; PULSE 75
[2020-01-19] MEDS: ACET/COD 300 MG/30 MG STARTER PACK 6 TAB BTL PO STA ×2 (19:26→19:28)
== END 2020-01-19 19:36 | disposition home or self-care (01) ==
LOC: EC 15:15
DX: R09.1 Pleurisy (principal); M62.830 Muscle spasm of back; R10.9 Unspecified abdominal pain; F32.9 Major depressive disorder, single episode, unspecified; M79.7 Fibromyalgia; Z79.899 Other long term (current) drug therapy; Z88.8 Allergy status to other drugs, medicaments and biological substances; Z88.0 Allergy status to penicillin; Z88.2 Allergy status to sulfonamides
CPT/HCPCS: 99285; 96374; 96375; 96361 ×3; 36415; 93005; 85379; 80053; 82150; 83605; 83690; 83735; 84484; 85025; 85610; 85730; 81001; 71046; 71275; J2270; J2405; Q9967

== ENCOUNTER → 2020-02-06 | Outpatient (CLI) | payer BC ==
--- NOTE | 2020-02-06 14:26 | NM ---
EXAMINATION TYPE: NM bone scan whole body DATE OF EXAM: 02/06/2020 COMPARISON: NONE HISTORY: R07.81 Left rib pain Delayed whole-body scanning was performed following the injection of 22.5 mCi Tc 99m MDP. Images acq uired 3 hours post injection. FINDINGS: Noted are focal areas of increased radiotracer accumulation involving left ribs 10/11/1988. Findings ar e compatible with the recent fractures. No additional intense areas of increased uptake are noted. De generative uptake is noted about the L4-5 level. Degenerative uptake is also seen about the cervical spine. Degenerative uptake about the shoulders and sternoclavicular joints. IMPRESSION: Acute left-sided rib fractures.
== END | disposition home or self-care (01) ==
LOC: RADNMMAIN 10:04
PROVIDERS: ATTEND Family Medicine
DX: S22.42XA Multiple fractures of ribs, left side, initial encounter for closed fracture (principal)
CPT/HCPCS: 78306; A9503

== ENCOUNTER → 2020-03-29 | Outpatient (CLI) | payer BC | END | disposition home or self-care (01) | LOC: LABWHC1 13:02 | PROVIDERS: ATTEND Family Medicine | DX: Z20.828 Contact with and (suspected) exposure to other viral communicable diseases (principal) | CPT/HCPCS: U0003; C9803 ==

== ENCOUNTER → 2021-07-26 | Outpatient (CLI) | payer BC ==
--- NOTE | 2021-07-26 10:18 | MR ---
EXAMINATION TYPE: MR lumbar spine wo con DATE OF EXAM: 07/26/2021 COMPARISON: 12/21/2018 HISTORY: Back pain TECHNIQUE: T1 and T2 axial and sagittal images of the lumbar spine are submitted. FINDINGS: There is no abnormal signal seen within the visualized spinal cord or paraspinal soft tissu es. Signal within the kidneys may represent cysts although there is extreme artifact. At L1-2 there is loss of disc space and signal with left paracentral broad-based disc protrusion and mild effacement of thecal sac. Mild left-sided foraminal encroachment. Facet arthropathy similar to p rior exam. At L2-3 there is degenerative disc disease with broad-based bulging with more focal right paracentral and lateral disc small protrusion resulting in right-sided foraminal encroachment.. Hypertrophic suzie nge of the facets. Mild bilateral foraminal encroachment. At L3-4 there is degenerative disc disease with left paracentral broad-based small disc herniation re sulting in effacement of thecal sac and left-sided foraminal encroachment. Could not exclude nerve ro ot contact. Facet arthropathy noted. At L4-5 there is severe degenerative disc disease progressed from prior exam with the left paracentra l disc herniation extending into the left lateral recess resulting in severe left-sided foraminal enc roachment. Moderate encroachment on the right with advanced arthropathy in canal stenosis. At L5-S1 there is severe degenerative disc disease. Facet arthropathy. Neural foramina remain patent encroachment. Very mild central disc bulging. IMPRESSION: 1. Large left paracentral disc herniation extending into the left lateral recess L4-L5 with severe le ft-sided foraminal encroachment is suspected canal stenosis and nerve root impingement. 2. Persistent left-sided disc broad-based paracentral protrusion or small herniation L3-L4 with left- sided foraminal encroachment. 3. Left paracentral broad-based disc protrusion at L1-L2 with mild left-sided foraminal encroachment. 4. Progression of degenerative disc disease L4-L5 which now is severe. 5. There is a small focal right paracentral disc protrusion or tiny herniation L-2-L3 with the additi onal diffuse disc bulging and bilateral foraminal encroachment greater on the right.
== END | disposition home or self-care (01) ==
LOC: RADMRIMAIN 09:31
PROVIDERS: ATTEND Orthopaedic Surgery Foot and Ankle Surgery
DX: M51.26 Other intervertebral disc displacement, lumbar region (principal); M51.36 Other intervertebral disc degeneration, lumbar region
CPT/HCPCS: 72148

== ENCOUNTER 2022-02-05 10:51 | Emergency (ER) | payer BC ==
[2022-02-05 11:17] VITALS: BP 115/77; PULSE 74; RESP 20; TEMP 98.4
--- NOTE | 2022-02-05 12:05 | XR ---
EXAMINATION TYPE: XR knee complete LT DATE OF EXAM: 02/05/2022 11:46 AM INDICATION: Patient age:Female; 61 years old; Reason for study: injury; COMPARISON: None. TECHNIQUE: The Left knee(s) was examined in 3 projections. Frontal, lateral and oblique. FINDINGS: Soft tissue opacity measuring 7.7 x 2.5 cm seen along the medial aspect of the left lower t high. Scattered osteophyte related changes with osteophyte formation of the tibial plateau and patell a. Surgical changes noted in the proximal tibia. IMPRESSION: 1. No acute osseous pathology. 2. Soft tissue opacity over the medial thigh likely related to hematoma in the setting of trauma. Con outsole cementer MRI for further evaluation of the soft tissues as clinically warranted. 3. Mild tricompartmental osteoarthritic changes.
[2022-02-05] MEDS ORDERED: KETOROLAC 15 MG/ML 1 ML VIAL IVP STA (12:10)
--- NOTE | 2022-02-05 12:38 | ED ---
General Adult HPI - General Chief complaint: Extremity Injury, Upper Stated complaint: Left Knee Injury Time Seen by Provider: 02/05/22 11:18 Source: patient Mode of arrival: ambulatory Limitations: no limitations - History of Present Illness Initial comments: Patient is a 61-year-old female who presents to the emergency department with a chief complaint of left knee pain. Patient states on 01/27 she had an accident while lawnmowing which including the lawnmower falling on her left knee. Patient did not seek medical evaluation. States she had a lot of swelling on the inside of her knee. States the swelling has improved however will not go away. Patient also reports shooting pains in the knee. She has been taking Motrin with some relief. Patient has been able to walk without issue. States bending her knee does not cause increased pain. She denies other injury. - Related Data Home Medications Medication Instructions Recorded Confirmed Citalopram Hydrobromide [CeleXA] 40 mg PO DAILY@1200 02/25/17 01/19/20 Tolterodine Tartrate [Detrol LA] 4 mg PO DAILY@1200 02/25/17 01/19/20 Ibuprofen [Motrin] 800 mg PO TID PRN 01/19/20 01/19/20 lamoTRIgine [LaMICtal Xr] 200 mg PO DAILY@1200 01/19/20 01/19/20 Previous Rx's Medication Instructions Recorded Acetaminophen-Codeine 300-30mg 1 tab PO Q6H PRN 3 Days #12 tablet 01/19/20 [Tylenol w/codeine #3] methocarbamoL [Robaxin] 1,500 mg PO TID #12 tab 01/19/20 methylPREDNISolone Dose Pack 4 mg PO DIRECTED #21 package 01/19/20 [Medrol Dose Pack] Ketorolac [Toradol] 10 mg PO Q8HR PRN #21 tab 02/05/22 Allergies Allergy/AdvReac Type Severity Reaction Status Date / Time naproxen [From Aleve] Allergy Swelling Verified 02/05/22 11:16 Penicillins Allergy Unknown Verified 02/05/22 11:16 Sulfa (Sulfonamide Allergy generalized Verified 02/05/22 11:16 Antibiotics) swelling, hives Review of Systems ROS Statement: Those systems with pertinent positive or pertinent negative responses have been documented in the HPI. ROS Other: All systems not noted in ROS Statement are negative. Past Medical History Past Medical History: Fibromyalgia Additional Past Medical History / Comment(s): hx fractured wrist, weak bladder, steroids w/in 3 mos, pm > 2 YRS History of Any Multi-Drug Resistant Organisms: None Reported Past Surgical History: Hysterectomy, Orthopedic Surgery Additional Past Surgical History / Comment(s): finger surg,wrist surg,knee surg Past Anesthesia/Blood Transfusion Reactions: Motion Sickness Past Psychological History: Depression Smoking Status: Current every day smoker Past Alcohol Use History: Occasional Past Drug Use History: Marijuana - Past Family History Mother Family Medical History: No Reported History Father Additional Family Medical History / Comment(s): cerebral hemorrhage General Exam Limitations: no limitations General appearance: alert Head exam: Present: atraumatic, normocephalic, normal inspection Respiratory exam: Present: normal lung sounds bilaterally. Absent: respiratory distress, wheezes, rales, rhonchi, stridor Cardiovascular Exam: Present: regular rate, normal rhythm, normal heart sounds. Absent: systolic murmur, diastolic murmur, rubs, gallop, clicks Extremities exam: Present: other (large hematoma over left medial knee. No involvement of knee cap or popliteal fossa. No pain with flexion/extension of knee. Distal pulses 2+) Neurological exam: Present: alert, oriented X3, CN II-XII intact Psychiatric exam: Present: normal affect, normal mood Skin exam: Present: warm, dry, intact, normal color. Absent: rash Course Vital Signs 02/05/22 11:14 Temperature 98.4 F Pulse Rate 74 Respiratory 20 Rate Blood Pressure 115/77 O2 Sat by Pulse 97 Oximetry Medical Decision Making - Medical Decision Making This is a 61-year-old female presenting with left knee pain and swelling. Large hematoma is appreciated over left medial knee. There is no involvement of the left knee or popliteal fossa. Neurovascularly intact. X-ray shows a 7.72.5 cm hematoma over the medial aspect of the left thigh. Results discussed with patient. Patient showed me a picture of left knee shortly after injury. Hematoma today significantly improved. Patient will continue ice and elevation at home. She declines manish wrap for compression and states she will wrap it at home. Her pain was well tolerated with Toradol today. I will send her home with Toradol for pain. She will follow up with the primary care provider. I have low suspicion of ligament injury however I did refer patient to security management specialist who she will reach out to if symptoms do not start to improve in 1-[address] Jones is my attending. Disposition Clinical Impression: Left knee injury, Hematoma Disposition: HOME SELF-CARE Condition: Good Instructions (If sedation given, give patient instructions): P.R.I.C.E. Treatment (ED), Hematoma (ED) Additional Instructions: Take medication as directed. Do not take other anti-inflammatories while taking Toradol. Rest, ice, and elevate the left knee as much as possible. If pain continues in 1 to 2 weeks please see security management specialist. Return to the emerg ency department experience new, concerning, or worsening symptoms Prescriptions: Ketorolac [Toradol] 10 mg PO Q8HR PRN #21 tab PRN Reason: Pain Is patient prescribed a controlled substance at d/c from ED?: No Referrals: Ronald Fajardo DO [Primary Care Provider] - 1-2 days Time of Disposition: 12:37
[2022-02-05] MEDS ORDERED: KETOROLAC 15 MG/ML 1 ML VIAL IM STA (12:49)
== END 2022-02-05 12:59 | disposition home or self-care (01) ==
LOC: EC 10:51
DX: S80.02XA Contusion of left knee, initial encounter (principal); F17.200 Nicotine dependence, unspecified, uncomplicated; Z88.6 Allergy status to analgesic agent; Z88.0 Allergy status to penicillin; Z88.2 Allergy status to sulfonamides; W19.XXXA Unspecified fall, initial encounter; Y93.H2 Activity, gardening and landscaping
CPT/HCPCS: 73562; 99283; 96372; J1885

== ENCOUNTER → 2022-02-14 | Outpatient (CLI) | payer BC ==
--- NOTE | 2022-02-14 12:28 | BD ---
EXAMINATION TYPE: Axial Bone Density DATE OF EXAM: 02/14/2022 COMPARISON: NONE CLINICAL HISTORY: 61 years year old Female. ICD-10 CODE: M81.0 Osteoporisis Height: 65 Weight: 140 FRAX RISK QUESTIONS: History of Fracture in Adulthood: y Secondary Osteoporosis: Current Tobacco Use: y RISK FACTORS HISTORY OF: Postmenopausal woman: y Lost more than 2 inches in height since high school: y Frequent falls: y MEDICATIONS: Additional Medications: depression, incontinence Additional History: EXAM MEASUREMENTS: Bone mineral densitometry was performed using the [employer] System. Bone mineral density as measured about the Lumbar spine is: ----- L1-L4(G/cm2): 1.443 T Score Values are as follows: ----- L1: 1.4 ----- L2: 0.9 ----- L3: 1.7 ----- L4: 4.0 ----- L1-L4: 2.2 Bone mineral density about the R hip (g/cm2): 0.876 Bone mineral density about the L hip (g/cm2): 0.905 T Score values are as follows: -----R Neck: -1.2 -----L Neck: -1.0 -----R Total: -0.9 -----L Total: -0.4 FRAX%s: The graph provided illustrates a 7.6% chance for a major osteoporotic fx and a 1.0% chance fo r the hips probability for fx in 10 years time. IMPRESSION: Osteopenia (T Score between -2.5 and -1). There is slightly increased risk of fracture and the patient may be considered for treatment. Re-Screen 2-5 years. NOTE: T-SCORE=SD OF THE YOUNG ADULT MEAN.
== END | disposition home or self-care (01) ==
LOC: RADBDWWP 08:58
PROVIDERS: ATTEND Family Medicine
DX: M85.89 Other specified disorders of bone density and structure, multiple sites (principal)
CPT/HCPCS: 77080

== ENCOUNTER → 2022-04-28 | Outpatient (CLI) | payer BC ==
[~2022-04-28] MED LIST: SODIUM CHLORIDE 0.9% 500 ML 500 ML in EMPTY BAG 1 BAG IV PRN; ZOLEDRONIC ACID 5 MG in SODIUM CHLORIDE 0.9% 100 ML IV NR
[2022-04-28 10:34] VITALS: BP 112/77; PULSE 80; RESP 16; TEMP 97.7
== END ==
LOC: PROCWHC3 10:08
PROVIDERS: ATTEND Family Medicine
DX: M81.0 Age-related osteoporosis without current pathological fracture (principal); F17.200 Nicotine dependence, unspecified, uncomplicated; Z88.0 Allergy status to penicillin; Z88.2 Allergy status to sulfonamides; Z88.6 Allergy status to analgesic agent
CPT/HCPCS: 96365; J3489

== ENCOUNTER 2022-04-29 01:09 | Emergency (ER) | payer BC ==
[2022-04-29 01:14] VITALS: TEMP 97.6
--- NOTE | 2022-04-29 01:24 | ED ---
Chest Pain HPI - General Chief Complaint: Chest Pain Stated Complaint: Chest Pain Time Seen by Provider: 04/29/22 01:17 Source: patient, RN notes reviewed, old records reviewed Mode of arrival: ambulatory Limitations: no limitations - History of Present Illness Initial Comments: This is a 62-year-old female to the ER for evaluation. Patient presents today for evaluation regards to chest pain chest pain to the back chest pain prior to arrival. Patient is mildly anxious for this chest pain. Patient has no history of heart disease, no high blood pressure no high cholesterol no diabetes no smoking MD Complaint: chest pain -: hour(s) Onset: during rest, during exertion Pain Location: substernal Pain Radiation: none Severity: moderate Severity scale (1-10): 4 Consistency: intermittent Improves With: nothing Worsens With: nothing Anginal Symptoms: diaphoresis Other Symptoms: palpitations Treatments Prior to Arrival: none - Related Data Home Medications Medication Instructions Recorded Confirmed Citalopram Hydrobromide [CeleXA] 40 mg PO DAILY@1200 02/25/17 04/28/22 Tolterodine Tartrate [Detrol LA] 4 mg PO DAILY@1200 02/25/17 04/28/22 Ibuprofen [Motrin] 800 mg PO TID PRN 01/19/20 04/28/22 lamoTRIgine [LaMICtal Xr] 200 mg PO DAILY@1200 01/19/20 04/28/22 Previous Rx's Medication Instructions Recorded Acetaminophen-Codeine 300-30mg 1 tab PO Q6H PRN 3 Days #12 tablet 01/19/20 [Tylenol w/codeine #3] methocarbamoL [Robaxin] 1,500 mg PO TID #12 tab 01/19/20 Ketorolac [Toradol] 10 mg PO Q8HR PRN #21 tab 02/05/22 Allergies Allergy/AdvReac Type Severity Reaction Status Date / Time naproxen [From Aleve] Allergy Swelling Verified 04/29/22 01:11 Penicillins Allergy Unknown Verified 04/29/22 01:11 Sulfa (Sulfonamide Allergy generalized Verified 04/29/22 01:11 Antibiotics) swelling, hives Review of Systems ROS Statement: Those systems with pertinent positive or pertinent negative responses have been documented in the HPI. ROS Other: All systems not noted in ROS Statement are negative. EKG Findings - EKG Comments: EKG Findings:: EKG is sinus 87 VT 162 QRS 90 QTC 397 Past Medical History Past Medical History: Fibromyalgia Additional Past Medical History / Comment(s): hx fractured wrist, weak bladder, steroids w/in 3 mos, pm > 2 YRS. OSTEOPONIA. History of Any Multi-Drug Resistant Organisms: None Reported Past Surgical History: Hysterectomy, Orthopedic Surgery Additional Past Surgical History / Comment(s): finger surg,wrist surg,knee surg, sinus surgery Past Anesthesia/Blood Transfusion Reactions: Motion Sickness Past Psychological History: Depression Smoking Status: Current every day smoker Past Alcohol Use History: Occasional Past Drug Use History: Marijuana - Past Family History Mother Family Medical History: No Reported History Father Additional Family Medical History / Comment(s): cerebral hemorrhage General Exam Limitations: no limitations General appearance: alert, in no apparent distress, anxious Head exam: Present: atraumatic, normocephalic, normal inspection Eye exam: Present: normal appearance, PERRL, EOMI. Absent: scleral icterus, conjunctival injection, periorbital swelling ENT exam: Present: normal exam, mucous membranes moist Neck exam: Present: normal inspection. Absent: tenderness, meningismus, lymphadenopathy Respiratory exam: Present: normal lung sounds bilaterally. Absent: respiratory distress, wheezes, rales, rhonchi, stridor Cardiovascular Exam: Present: normal rhythm, tachycardia, normal heart sounds. Absent: systolic murmur, diastolic murmur, rubs, gallop, clicks GI/Abdominal exam: Present: soft, normal bowel sounds. Absent: distended, tenderness, guarding, rebound, rigid Extremities exam: Present: normal inspection, full ROM, normal capillary refill. Absent: tenderness, pedal edema, joint swelling, calf tenderness Back exam: Present: normal inspection Neurological exam: Present: alert, oriented X3, CN II-XII intact Psychiatric exam: Present: normal affect, normal mood Skin exam: Present: warm, dry, intact, normal color. Absent: rash Course Vital Signs 04/29/22 01:11 Temperature 97.6 F Pulse Rate 102 H Respiratory 16 Rate Blood Pressure 135/85 O2 Sat by Pulse 98 Oximetry - Reevaluation(s) Reevaluation #1: 04/29/22 03:59 Medical record is reviewed Reevaluation #2: 04/29/22 03:59 Patient informed of results and questions answered Reevaluation #3: 04/29/22 03:59 Patient feels improved okay for discharge home Chest Pain MDM - MDM 62 female to the emergency department for evaluation patient presents today for evaluation of generalized pain chest pain. Patient symptoms are improved here in the ER patient did have an effusion today to be causing her symptoms are could be pleurisy from likely undiagnosed bronchitis. Patient has no shortness of breath can be discharged home Disposition Clinical Impression: Medication reaction Disposition: HOME SELF-CARE Condition: Good Instructions (If sedation given, give patient instructions): Costochondritis (ED) Is patient prescribed a controlled substance at d/c from ED?: No Referrals: Ronald Fajardo DO [Primary Care Provider] - 1-2 days Time of Disposition: 04:00
[2022-04-29 01:55] LABS: Basophils % (A) 0 %; Eosinophils # (A) 0.2 k/uL (0-0.7); Eosinophils % (A) 2 %; HCT 40.5 % (34.0-46.0); Lymphocytes # (A) 1.1 k/uL (1.0-4.8); Lymphocytes % (A) 11 %; MCHC 34.5 g/dL (31.0-37.0); MCV 92.9 fL (80.0-100.0); Mean Platelet Volume 8.4; Monocytes # (A) 0.2 k/uL (0-1.0); Monocytes % (A) 2 %; Neutrophils # (A) 8.2 k/uL (1.3-7.7); Neutrophils % (A) 85 %; Platelet Count 181 k/uL (150-450); RBC 4.36 m/uL (3.80-5.40); RDW 12.2 % (11.5-15.5); WBC 9.7 k/uL (3.8-10.6)
[2022-04-29 02:03] LABS: INR 0.9 (<1.2); Partial Thromboplastin Time 23.4 sec (22.0-30.0); Prothrombin Time 9.7 sec (9.0-12.0)
--- NOTE | 2022-04-29 02:03 | XR ---
EXAMINATION TYPE: XR chest 1V portable DATE OF EXAM: 04/29/2022 COMPARISON: 01/19/2020 HISTORY: Chest pain TECHNIQUE: FINDINGS: Heart is normal. Lungs are clear of infiltrate. No heart failure. There are no hilar masses . Bony thorax is intact. IMPRESSION: No active cardiopulmonary disease. No change.
[2022-04-29 02:14] LABS: ALT 19 U/L (4-34); African American GFR (CKD) >90 (>60 ml/min/1.73 sqM); Albumin 3.8 g/dL (3.5-5.0); Anion Gap 7 mmol/L; Blood Urea Nitrogen 19 mg/dL (7-17); Calcium 10.1 mg/dL (8.4-10.2); Carbon Dioxide 22 mmol/L (22-30); Chloride 107 mmol/L (98-107); Glucose 111 mg/dL (74-99); Lipase 89 U/L (23-300); Non-African American GFR(CKD) >90 (>60 ml/min/1.73 sqM); Sodium 136 mmol/L (137-145); Total Bilirubin 0.7 mg/dL (0.2-1.3)
[2022-04-29] MEDS ORDERED: IPRATROPIUM-ALBUTEROL 3 ML NEB INHALATION STA (02:15)
[2022-04-29] MEDS ORDERED: MORPHINE SULFATE 4 MG/ML SYRINGE IVP STA (02:15)
[2022-04-29 02:17] LABS: AST 25 U/L (14-36); Alkaline Phosphatase 73 U/L (38-126); Magnesium 1.7 mg/dL (1.6-2.3); Potassium 4.3 mmol/L (3.5-5.1)
[2022-04-29] MEDS ORDERED: DEXAMETHASONE SOD PHOSPHATE 10 MG/ML 1 ML VIAL IVP STA (02:34)
[2022-04-29 05:22] VITALS: BP 129/77; PULSE 78; RESP 15
== END 2022-04-29 05:29 | disposition home or self-care (01) ==
LOC: EC 01:09
DX: T50.905A Adverse effect of unspecified drugs, medicaments and biological substances, initial encounter (principal); F32.A Depression, unspecified; F17.200 Nicotine dependence, unspecified, uncomplicated; F12.90 Cannabis use, unspecified, uncomplicated; Z88.0 Allergy status to penicillin; Z88.2 Allergy status to sulfonamides; Z88.6 Allergy status to analgesic agent
CPT/HCPCS: 36415; 93005; 83880; 80053; 83690; 83735; 84484; 85025; 85610; 85730; 71045; 99285; 96374; 96375; J2270; J1100

== ENCOUNTER → 2022-05-18 | Outpatient (CLI) | payer BC ==
[2022-05-18 18:47] LABS: INR 0.91 (0.90-1.11); Prothrombin Time 10.3 sec (9.9-11.9)
== END | disposition home or self-care (01) ==
LOC: LABWHC1 12:38
PROVIDERS: ATTEND Psychiatry & Neurology Neurology
DX: Z01.812 Encounter for preprocedural laboratory examination (principal)
CPT/HCPCS: 36415; 85610

== ENCOUNTER 2023-09-23 11:48 | Emergency (ER) | payer MEDICARE, BC ==
[2023-09-23 12:22] VITALS: BP 158/75; PULSE 92; RESP 18; TEMP 98.2
--- NOTE | 2023-09-23 12:43 | ED ---
Lower Extremity Injury HPI - General Chief Complaint: Extremity Injury, Lower Stated Complaint: Left foot injury Time Seen by Provider: 09/23/23 12:20 Source: patient, RN notes reviewed Mode of arrival: ambulatory Limitations: no limitations - History of Present Illness Initial Comments: 63-year-old female presenting with left foot injury 1 day ago. States her mother accidentally slammed her walker onto patient's left foot yesterday. She is able to weight-bear but admits some bruising and swelling. She also admits to a left ankle injury 1 week ago where she twisted her left ankle. She has had some left ankle swelling since this injury. Denies numbness or tingling. - Related Data Home Medications Medication Instructions Recorded Confirmed Citalopram Hydrobromide [CeleXA] 40 mg PO DAILY@1200 02/25/17 04/28/22 Tolterodine Tartrate [Detrol LA] 4 mg PO DAILY@1200 02/25/17 04/28/22 Ibuprofen [Motrin] 800 mg PO TID PRN 01/19/20 04/28/22 lamoTRIgine [LaMICtal Xr] 200 mg PO DAILY@1200 01/19/20 04/28/22 Previous Rx's Medication Instructions Recorded Acetaminophen-Codeine 300-30mg 1 tab PO Q6H PRN 3 Days #12 tablet 01/19/20 [Tylenol w/codeine #3] methocarbamoL [Robaxin] 1,500 mg PO TID #12 tab 01/19/20 Ketorolac [Toradol] 10 mg PO Q8HR PRN #21 tab 02/05/22 Allergies Allergy/AdvReac Type Severity Reaction Status Date / Time naproxen [From Aleve] Allergy Swelling Verified 09/23/23 11:53 Penicillins Allergy Unknown Verified 09/23/23 11:53 Sulfa (Sulfonamide Allergy generalized Verified 09/23/23 11:53 Antibiotics) swelling, hives Review of Systems ROS Statement: Those systems with pertinent positive or pertinent negative responses have been documented in the HPI. ROS Other: All systems not noted in ROS Statement are negative. Past Medical History Past Medical History: Fibromyalgia Additional Past Medical History / Comment(s): hx fractured wrist, weak bladder, steroids w/in 3 mos, pm > 2 YRS. OSTEOPONIA. History of Any Multi-Drug Resistant Organisms: None Reported Past Surgical History: Hysterectomy, Orthopedic Surgery Additional Past Surgical History / Comment(s): finger surg,wrist surg,knee surg, sinus surgery Past Anesthesia/Blood Transfusion Reactions: Motion Sickness Past Psychological History: Anxiety, Depression Smoking Status: Current every day smoker Past Alcohol Use History: Occasional Past Drug Use History: Marijuana - Past Family History Mother Family Medical History: No Reported History Father Additional Family Medical History / Comment(s): cerebral hemorrhage General Exam Limitations: no limitations General appearance: alert, in no apparent distress Respiratory exam: Present: normal lung sounds bilaterally. Absent: respiratory distress, wheezes, rales, rhonchi, stridor Cardiovascular Exam: Present: regular rate, normal rhythm, normal heart sounds. Absent: systolic murmur, diastolic murmur, rubs, gallop, clicks Left Lower Leg exam: Present: normal inspection, full ROM. Absent: tenderness, swelling Ankle exam: Present: normal inspection, full ROM. Absent: tenderness (No lateral or medial malleolus tenderness), swelling Foot/Toe exam: Present: full ROM, tenderness, swelling (Mild swelling of dorsal aspect of foot, no pitting edema.). Absent: normal inspection (Diffuse mild contusions along dorsal aspect of left foot, diffuse mild tenderness to palpation over lateral dorsal aspect of left foot, full sensation, full dorsalis pedis pulses, cap refill less than 2 seconds.), abrasion, laceration Neurovascular tendon exam: Present: no vascular compromise. Absent: pulse deficit Course Vital Signs 09/23/23 11:50 Temperature 98.2 F Pulse Rate 92 Respiratory 18 Rate Blood Pressure 158/75 O2 Sat by Pulse 95 Oximetry Medical Decision Making - Medical Decision Making Was pt. sent in by a medical professional or institution (, PA, OPERATIONAL ASSISTANT, urgent care, hospital, or penitentiary...) When possible be specific @ -No Did you speak to anyone other than the patient for history (EMS, parent, family, police, friend...)? What history was obtained from this source @ -No Did you review nursing and triage notes (agree or disagree)? Why? @ -I reviewed and agree with nursing and triage notes Were old charts reviewed (outside hosp., previous admission, EMS record, old EKG, old radiological studies, urgent care reports/EKG's, penitentiary records)? Report findings @ -No old charts were reviewed Differential Diagnosis (chest pain, altered mental status, abdominal pain women, abdominal pain men, vaginal bleeding, weakness, fever, dyspnea, syncope, headache, dizziness, GI bleed, back pain, seizure, CVA, palpatations, mental health, musculoskeletal)? @ -Differential Musculoskeletal Muscular strain, contusion, ligament sprain, fracture, arthritis, septic arthritis, bursitis, cellulitis, muscle spasm, nerve compression, DVT, arterial occlusion, herpes zoster, electrolyte abnormality, tumor.... This is not meant to be in all inclusive list EKG interpreted by me (3pts min.). @ -None X-rays interpreted by me (1pt min.). @ -X-ray of left foot and ankle reveals no acute fracture, subcutaneous swelling around ankle likely secondary to underlying soft tissue injury CT interpreted by me (1pt min.). @ -None done U/S interpreted by me (1pt. min.). @ -None done What testing was considered but not performed or refused? (CT, X-rays, U/S, labs)? Why? @ -None What meds were considered but not given or refused? Why? @ -None Did you discuss the management of the patient with other professionals (pr ofessionals i.e. , PA, OPERATIONAL ASSISTANT, lab, RT, psych nurse, drug abuse social worker, tie bucker, teacher, surveillance sensor officer, mattress spring encaser)? Give summary @ -No Was smoking cessation discussed for >3mins.? @ -No Was critical care preformed (if so, how long)? @ -No Were there social determinants of health that impacted care today? How? (Homelessness, low income, unemployed, alcoholism, drug addiction, transportation, low edu. Level, literacy, decrease access to med. care, snf, rehab)? @ -No Was there de-escalation of care discussed even if they declined (Discuss DNR or withdrawal of care, Hospice)? DNR status @ -No What co-morbidities impacted this encounter? (DM, HTN, Smoking, COPD, CAD, Cancer, CVA, ARF, Chemo, Hep., AIDS, mental health diagnosis, sleep apnea, morbid obesity)? @ -None Was patient admitted / discharged? Hospital course, mention meds given and route, prescriptions, significant lab abnormalities, going to OR and other pertinent info. @ -Patient was discharged. Patient was seen and evaluated for left foot injury 1 day ago. Patient is able to weight-bear and is neurovascularly intact. X-ray revealed no acute fracture, subcutaneous swelling around ankle likely secondary to underlying soft tissue injury. Discussed diagnosis of left foot strain with patient. Supportive care discussed. Patient declined Jose Eduardo wrap and pain medication at this time. Strict return/alarm symptoms discussed with patient and patient shows understanding and agrees with plan. Patient discharged in stable condition. Case discussed with Dr. Michelle. Undiagnosed new problem with uncertain prognosis? @ -No Drug Therapy requiring intensive monitoring for toxicity (Heparin, Nitro, Insulin, Cardizem)? @ -No Were any procedures done? @ -No Diagnosis/symptom? @ -Left foot strain Acute, or Chronic, or Acute on Chronic? @ -Acute Uncomplicated (without systemic symptoms) or Complicated (systemic symptoms)? @ -Uncomplicated Side effects of treatment? @ -No Exacerbation, Progression, or Severe Exacerbation? @ -No Poses a threat to life or bodily function? How? (Chest pain, [place], [place], pneumonia, PE, COPD, DKA, ARF, appy, cholecystitis, CVA, Diverticulitis, Homicidal, Suicidal, threat to staff... and all critical care pts) @ -No Disposition Clinical Impression: Strain of left foot Disposition: HOME SELF-CARE Condition: Stable Instructions (If sedation given, give patient instructions): Foot Sprain (ED) Additional Instructions: Please return to the Emergency Department if symptoms worsen or any other concerns. Is patient prescribed a controlled substance at d/c from ED?: No Referrals: Ronald Fajardo DO [Primary Care Provider] - 1-2 days Time of Disposition: 13:50
--- NOTE | 2023-09-23 13:25 | XR ---
EXAMINATION TYPE: XR ankle complete LT, XR foot complete LT DATE OF EXAM: 09/23/2023 1:09 PM CLINICAL INDICATION:Female, 63 years old with history of left foot/ankle injury; [facility] COMPARISON: None TECHNIQUE: XR ankle complete LT, XR foot complete LT; ankle is imaged in frontal, lateral and obliqu e projections. FINDINGS: There is no evidence of acute osseous pathology. No evidence of subluxation or dislocation. Kager's fat pad is intact. Mild soft tissue swelling around the ankle. No radiopaque foreign bodies are ident ified. Multifocal degeneration changes throughout the joints of the foot with osteophyte formation an d joint space narrowing. Calcaneal plantar spurring is present. Incidental note is made of symphalang ism of the fifth distal interphalangeal joint with degeneration changes worse at this joint. IMPRESSION: 1. No evidence of acute fracture. 2. Subcutaneous swelling around the ankle likely secondary to underlying soft tissue injury.
== END 2023-09-23 13:59 | disposition home or self-care (01) ==
LOC: EC 11:48
DX: S96.912A Strain of unspecified muscle and tendon at ankle and foot level, left foot, initial encounter (principal); F17.200 Nicotine dependence, unspecified, uncomplicated; Z88.0 Allergy status to penicillin; Z88.2 Allergy status to sulfonamides; Z88.6 Allergy status to analgesic agent; X50.1XXA Overexertion from prolonged static or awkward postures, initial encounter
CPT/HCPCS: 99283

== ENCOUNTER → 2024-01-23 | Outpatient (CLI) | payer MEDICARE, BC ==
--- NOTE | 2024-01-23 08:21 | CTL ---
EXAMINATION TYPE: CT Low Dose Lung DATE OF EXAM: 01/23/2024 7:25 AM CLINICAL INDICATION: Female, 63 years old with history of Z87.891 NICOTINE DEPENDENCE; smoker , histo ry of tobacco use. COMPARISON: 01/19/2020 TECHNIQUE: Multiple axial non-contrast scans were obtained from approximately the lung apices through the upper abdomen. Coronal and sagittal reformatted images were obtained. Low dose technique was uti lized. CT DLP: 87.4 mGycm, Automated exposure control for dose reduction was used. CT Contrast: Contrast used: None Oral contrast used: None FINDINGS: ======== Lack of intravenous contrast and low dose technique limits the evaluation of the vascular and soft ti ssue structures. LUNGS: No evidence of pulmonary fibrosis. No evidence of focal consolidation, pneumothorax or pleural effusion. Centrilobular emphysema changes. Nodules: RUL: None. RML: None. RLL: 4 mm series 5 image 50, stable back to 2019. JUAN ANTONIO: None. LLL: Intrafissural lymph node series 5 image 46R measuring 4 mm AIRWAY: Patent and unremarkable. HEART: Size within normal limits. MEDIASTINUM: No gross evidence of adenopathy. VASCULATURE: No aortic aneurysm. MUSCULOSKELETAL: No acute osseous abnormalities, nerve stimulator devices terminating posteriorly in the spine SOFT TISSUES/LYMPH NODES: Unremarkable. LOWER NECK: No significant findings. UPPER ABDOMEN: No significant findings. IMPRESSION: 1. No clinically significant pulmonary nodules. 2. Mild emphysema. CT LUNG RAD AND CT CHEST RECOMMENDATION: Lung-Rad 2 Benign Appearance or Behavior: Continue annual sc reening with LDCT in 12 months. S Modifier (other clinically significant findings): None Recommend smoking cessation (if current smoker), or continuation of smoking cessation (if prior smoke r). Annual screening for lung cancer with low-dose computed tomography is recommended in adults ages 55 to 77 years who have a 30 pack-year smoking history and currently smoke or have quit within the pa st 15 years. Screening should be discontinued once a person has not smoked for 15 years or develops a health problem that substantially limits life expectancy or the ability or willingness to have curat shashank lung surgery. Lung rads 2021 [email or web address] [facility], , 01/23/2024 8:19 AM
== END | disposition home or self-care (01) ==
LOC: RADCTMAIN 06:43
PROVIDERS: ATTEND Family Medicine
DX: Z87.891 Personal history of nicotine dependence
CPT/HCPCS: 71271

== ENCOUNTER → 2024-02-18 | Outpatient (CLI) | payer MEDICARE, BC ==
--- NOTE | 2024-02-18 10:19 | BD ---
EXAMINATION TYPE: Axial Bone Density DATE OF EXAM: 02/18/2024 CLINICAL HISTORY: 63 years old Female. ICD-10 CODE: M85.80 OSTEOPENIA Height: 65" Weight: 145.9lbs FRAX RISK QUESTIONS: Alcohol (3 or more units per day): No Family History (Parent hip fracture): No Glucocorticoids (More than 3mos): No (Ex: prednisone, prednisolone, methylprednisolone, dexamethasone, and hydrocortisone). History of Fracture in Adulthood: No Secondary Osteoporosis: 1. Type 1 Diabetes: No 2. Hyperthyroidism: No 3. Menopause before 45: No 4. Malnutrition: No 5. Chronic liver disease: No Rheumatoid Arthritis: No Current Tobacco Use: No RISK FACTORS HISTORY OF: Hip Fracture (Right/Left): No Spine Fracture: No History of Wrist Fracture: Right wrist When: Several years ago Surgery to Spine/Hip(right/left)/Wrist (right/left): Spine stimulator When: December 2022, scanned left wrist as well MEDICATIONS: Thyroid Medications: No Osteoporosis Medications: No EXAM MEASUREMENTS: Bone mineral densitometry was performed using the [employer]ryMar[employer] System. Bone mineral density as measured about the Lumbar spine is: ----- L1-L4(G/cm2): 1.482 T Score Values are as follows: ----- L1: 1.4 ----- L2: 1.9 ----- L3: 2.1 ----- L4: 4.0 ----- L1-L4: 2.5 Z Score Values are as follows: ----- L1: 2.9 ----- L2: 3.4 ----- L3: 3.6 ----- L4: 5.5 ----- L1-L4: 4.1 Bone mineral density has: increased 2.7% since study of: 02/14/2022 Bone mineral density about the R hip (g/cm2): 0.915 Bone mineral density about the L hip (g/cm2): 1.069 T Score values are as follows: -----R Neck: -1.3 -----L Neck: -0.1 -----R Total: -0.7 -----L Total: 0.5 Z Score values are as follows: -----R Neck: 0.1 -----L Neck: 1.3 -----R Total: 0.4 -----L Total: 1.6 Bone mineral density has: increased 6.9% since study of: 02/14/2022 Bone mineral density about the L Wrist (g/cm2): 0.662 T Score values are as follows: -----Dist. R+U: -1.3 -----Prox. R+U: 0.1 -----Radius total: -0.2 Z Score values are as follows: -----Dist. R+U: 0.0 -----Prox. R+U: 1.4 -----Radius total: 1.1 Baseline for wrist FRAX%s: The graph provided illustrates a 13.9% chance for a major osteoporotic fx and a 1.3% chance f or the hips probability for fx in 10 years time. IMPRESSION: Osteopenia (T Score between -2.5 and -1). There is slightly increased risk of fracture and the patient may be considered for treatment. Re-Screen 2-5 years. NOTE: T-SCORE=SD OF THE YOUNG ADULT MEAN. [facility], , 02/18/2024 10:17 AM
== END | disposition home or self-care (01) ==
LOC: RADBDWWP 07:19
PROVIDERS: ATTEND Family Medicine
DX: M85.89 Other specified disorders of bone density and structure, multiple sites (principal)
CPT/HCPCS: 77080

== ENCOUNTER → 2024-04-11 | Outpatient (CLI) | payer MEDICARE, BC ==
[~2024-04-11] MED LIST changes: +SODIUM CHLORIDE 0.9% 250 ML in EMPTY BAG 1 BAG IV PRN; -SODIUM CHLORIDE 0.9% 500 ML 500 ML in EMPTY BAG 1 BAG IV PRN; -ZOLEDRONIC ACID 5 MG in SODIUM CHLORIDE 0.9% 100 ML IV NR
[2024-04-11] MEDS: ZOLEDRONIC ACID 5 MG in SODIUM CHLORIDE 0.9% 100 ML IV NR (14:20)
[2024-04-11] MEDS: SODIUM CHLORIDE 0.9% 500 ML 500 ML in EMPTY BAG 1 BAG IV PRN (14:20)
[2024-04-11 14:24] VITALS: BP 120/80; PULSE 76; RESP 16; TEMP 98
== END ==
LOC: PROCWHC3 13:26
PROVIDERS: ATTEND Family Medicine
DX: M81.0 Age-related osteoporosis without current pathological fracture (principal)
CPT/HCPCS: 96365; J3489